=== PATIENT | male | born 1960 | race Caucasian/White ===

== ENCOUNTER → 2023-12-07 | Outpatient (BNVA) | payer MEDICARE, MEDICAID, SELFPAY | END | disposition home or self-care (01) | PROVIDERS: PCP Nurse Practitioner Family; Referring Provider Nurse Practitioner Family; Visit Provider Urology | DX: Z76.89 Persons encountering health services in other specified circumstances (principal) | CPT/HCPCS: 99212; G0463 ==

== ENCOUNTER → 2024-05-23 | Outpatient (CLI) | payer MEDICARE, MEDICAID, SELFPAY ==
[2024-05-23 09:19] LABS: Prostate Specific Antigen 3.01 ng/mL (0-4.00)
== END | disposition home or self-care (01) ==
PROVIDERS: PCP Urology; Referring Provider Urology; Visit Provider Urology
DX: C61 Malignant neoplasm of prostate (principal)
CPT/HCPCS: 36415; 84153

== ENCOUNTER → 2024-05-27 | Outpatient (BNVA) | payer MEDICARE, MEDICAID, SELFPAY | END | disposition home or self-care (01) | PROVIDERS: PCP Nurse Practitioner Family; Referring Provider Nurse Practitioner Family; Visit Provider Urology | DX: N40.0 Benign prostatic hyperplasia without lower urinary tract symptoms (principal); C61 Malignant neoplasm of prostate; I10 Essential (primary) hypertension; I25.10 Atherosclerotic heart disease of native coronary artery without angina pectoris | CPT/HCPCS: 81003; 99212; G0463 ==

== ENCOUNTER → 2024-06-07 | Outpatient (CLI) | payer MEDICARE, MEDICAID, SELFPAY ==
[2024-06-07 12:02] LABS: Basophils % (Auto) 0 % (0-2.5); Eosinophils # (Auto) 0.2 Thou/mm3 (0.0-0.5); Eosinophils % (Auto) 4 % (0-10); Hematocrit 34.2 % (41.0-53.0); Immature Granulocytes % (Auto) 0 % (0-0); Immature Granulocytes Auto 0.01 Thou/mm3 (0.00-0.00); Lymphocytes # (Auto) 1.4 Thou/mm3 (1.0-4.8); Lymphocytes % (Auto) 32 % (10-50); Mean Corpuscular HGB Conc 32.2 g/dl (31.0-37.0); Mean Corpuscular Volume 84 fL (80-100); Monocytes # (Auto) 0.6 Thou/mm3 (0.0-0.8); Monocytes % (Auto) 12 % (0-12); Neutrophils # (Auto) 2.3 Thou/mm3 (1.8-7.7); Neutrophils % (Auto) 52 % (37-80); Nucleated Red Blood Cell % 0 /100 WBC (0); Platelet Count 173 Thou/mm3 (140-440); RDW Standard Deviation 47.5 fL (35.1-43.9); Red Blood Count 4.08 Miln/mm3 (4.50-5.90); White Blood Count 4.5 Thou/mm3 (3.8-10.6)
[2024-06-07 12:20] LABS: Partial Thromboplastin Time 28.3 Seconds (22.0-36.0); Prothrombin Time 10.9 Seconds (9.0-12.2)
[2024-06-07 12:33] LABS: Anion Gap 4 (7-16); BUN/Creatinine Ratio 22 Ratio (12-20); Blood Urea Nitrogen 20 mg/dL (9-23); Calcium 8.7 mg/dL (8.3-10.6); Carbon Dioxide 27.8 mMol/L (20.0-31.0); Chloride 105 mMol/L (98-107); Creatinine (Component) 0.9 mg/dL (0.6-1.3); Glucose 127 mg/dL (74-106); Osmolality,Calculated 278 (275-295); Potassium 4.1 mMol/L (3.4-5.1); Sodium 137 mMol/L (136-145); eGFR > 60 See Note
== END | disposition home or self-care (01) ==
LOC: COPL 11:36
PROVIDERS: PCP Nurse Practitioner Family; Referring Provider Internal Medicine; Visit Provider Internal Medicine
DX: I25.10 Atherosclerotic heart disease of native coronary artery without angina pectoris (principal); I48.91 Unspecified atrial fibrillation
CPT/HCPCS: 36415; 80048; 85025; 85610; 85730

== ENCOUNTER → 2024-11-18 | Outpatient (CLI) | payer MEDICARE, MEDICAID, SELFPAY ==
[2024-11-18 10:52] LABS: Prostate Specific Antigen 4.19 ng/mL (0-4.00)
== END | disposition home or self-care (01) ==
LOC: COPL 08:49
PROVIDERS: PCP Nurse Practitioner Family; Referring Provider Urology; Visit Provider Urology
DX: C61 Malignant neoplasm of prostate (principal)
CPT/HCPCS: 36415; 84153

== ENCOUNTER → 2024-11-25 | Outpatient (BNVA) | payer MEDICARE, MEDICAID, SELFPAY | END | disposition home or self-care (01) | PROVIDERS: PCP Nurse Practitioner Family; Referring Provider Nurse Practitioner Family; Visit Provider Urology | DX: N40.0 Benign prostatic hyperplasia without lower urinary tract symptoms (principal); R97.20 Elevated prostate specific antigen [PSA]; C61 Malignant neoplasm of prostate; I10 Essential (primary) hypertension; I25.10 Atherosclerotic heart disease of native coronary artery without angina pectoris; E66.9 Obesity, unspecified; Z68.31 Body mass index [BMI] 31.0-31.9, adult | CPT/HCPCS: 81003; 99212; G0463 ==

== ENCOUNTER → 2024-12-12 | Outpatient (CLI) | payer MEDICARE, MEDICAID, SELFPAY ==
[2024-12-12 09:10] LABS: Basophils # (Auto) 0.0 Thou/mm3 (0.0-0.2); Basophils % (Auto) 0 % (0-2.5); Eosinophils # (Auto) 0.1 Thou/mm3 (0.0-0.5); Eosinophils % (Auto) 3 % (0-10); Hematocrit 35.4 % (41.0-53.0); Hemoglobin 11.3 g/dL (13.5-16.0); Immature Granulocytes Auto 0.01 Thou/mm3 (0.00-0.00); Lymphocytes # (Auto) 1.1 Thou/mm3 (1.0-4.8); Lymphocytes % (Auto) 25 % (10-50); Mean Corpuscular HGB Conc 31.9 g/dl (31.0-37.0); Mean Corpuscular Hemoglobin 27.2 pg (25.0-35.0); Mean Corpuscular Volume 85 fL (80-100); Monocytes # (Auto) 0.6 Thou/mm3 (0.0-0.8); Monocytes % (Auto) 12 % (0-12); Neutrophils # (Auto) 2.7 Thou/mm3 (1.8-7.7); Neutrophils % (Auto) 60 % (37-80); Nucleated Red Blood Cell # 0.00 Thou/mm3 (0.00-0.00); Nucleated Red Blood Cell % 0 /100 WBC (0); Platelet Count 150 Thou/mm3 (140-440); RDW Standard Deviation 49.0 fL (35.1-43.9); Red Blood Count 4.15 Miln/mm3 (4.50-5.90); White Blood Count 4.6 Thou/mm3 (3.8-10.6)
[2024-12-12 09:13] LABS: INR 1.0 (0.9-1.3); Partial Thromboplastin Time 28.7 Seconds (22.0-36.0); Prothrombin Time 10.9 Seconds (9.0-12.2)
[2024-12-12 09:34] LABS: Anion Gap 6 (7-16); BUN/Creatinine Ratio 14 Ratio (12-20); Blood Urea Nitrogen 13 mg/dL (9-23); Calcium 8.7 mg/dL (8.3-10.6); Carbon Dioxide 26.2 mMol/L (20.0-31.0); Chloride 110 mMol/L (98-107); Creatinine (Component) 0.9 mg/dL (0.6-1.3); Glucose 102 mg/dL (74-106); Osmolality,Calculated 283 (275-295); Potassium 4.3 mMol/L (3.4-5.1); Sodium 142 mMol/L (136-145); eGFR > 60 See Note
== END | disposition home or self-care (01) ==
LOC: COPL 06:53
PROVIDERS: PCP Nurse Practitioner Family; Referring Provider Internal Medicine; Visit Provider Internal Medicine
DX: I25.10 Atherosclerotic heart disease of native coronary artery without angina pectoris (principal); I48.91 Unspecified atrial fibrillation
CPT/HCPCS: 36415; 80048; 85025; 85610; 85730

== ENCOUNTER → 2025-01-09 | Outpatient (CLI) | payer MEDICARE, MEDICAID, SELFPAY | END | disposition home or self-care (01) | LOC: SLDO 12:05 | PROVIDERS: Referring Provider Urology; Visit Provider Urology | DX: R31.0 Gross hematuria (principal); C61 Malignant neoplasm of prostate | CPT/HCPCS: 87077; 87086; 87186 ==

== ENCOUNTER 2025-01-11 14:55 | Emergency (ER) | payer MEDICARE, MEDICAID, SELFPAY ==
[2025-01-11] VITALS (7 sets, daily range): BP systolic 118–167; BP diastolic 73–93; PULSE 83–120; RESP 16–20; TEMP 37.2–39.1; O2SAT 96–100; BMI 29.5
--- NOTE | 2025-01-11 15:16 | XR_ITS ---
Examination: CT abdomen and pelvis without contrast. Coronal 3-D reconstructions. Sagittal 2-D reconstructions. Date and time of exam: January 11, 2025, 1612 hours INDICATIONS: Right testicular pain and painful urination today. CTDI: vol (mGy): 9.28. DLP: (mGycm): 590. Technique: Axial images of the abdomen have been obtained, 3 mm slit thickness Intra ous contrast material has not been administered. Low dose protocols were performed. One or more of the following dose reduction techniques were used; automated exposure control, adjustment of the mA and/or KV according to patient size, use of iterative reconstruction technique. Findings: No focal liver or splenic lesions No gallstones No pancreatic or adrenal mass 4.3 cm left renal cyst No renal or ureteral calculi, no hydronephrosis Aorta normal size Normal appendix No bowel obstruction No diverticulitis Irregular urinary bladder wall thickening up to 14 mm No bladder calculi Suspicious for right varicocele IMPRESSION: No renal or ureteral calculi, no hydronephrosis. Normal appendix Irregular urinary bladder wall thickening up to 14 mm, differential would include cystitis, early bladder cancer not excluded Suspicious for right varicocele, recommend testicular sonography follow-up
--- NOTE | 2025-01-11 15:18 | PD.EDRME ---
Rapid Medical Screening Exam [facility] Arrival date/time: 01/11/25 14:55 84-year-old male presents to the emergency dept today for complaints of penile pain and dysuria Chief Complaint: Urogenital-Male Vital signs: Vital Signs Temperature 99.5 F 01/11/25 15:10 Pulse Rate 96 01/11/25 15:10 Respiratory Rate 18 01/11/25 15:10 Blood Pressure 159/81 H 01/11/25 15:10 Pulse Oximetry (%) 100 01/11/25 15:10 Oxygen Delivery Method Room Air 01/11/25 15:10
[2025-01-11 15:52] LABS: Collection Type, Urine Clean Catch
[2025-01-11 15:58] LABS: Basophils # (Auto) 0.0 Thou/mm3 (0.0-0.2); Basophils % (Auto) 0 % (0-2.5); Eosinophils # (Auto) 0.2 Thou/mm3 (0.0-0.5); Eosinophils % (Auto) 1 % (0-10); Hematocrit 34.6 % (41.0-53.0); Hemoglobin 11.2 g/dL (13.5-16.0); Immature Granulocytes Auto 0.05 Thou/mm3 (0.00-0.00); Lymphocytes # (Auto) 1.0 Thou/mm3 (1.0-4.8); Lymphocytes % (Auto) 9 % (10-50); Mean Corpuscular HGB Conc 32.4 g/dl (31.0-37.0); Mean Corpuscular Hemoglobin 27.3 pg (25.0-35.0); Mean Corpuscular Volume 84 fL (80-100); Monocytes # (Auto) 1.3 Thou/mm3 (0.0-0.8); Monocytes % (Auto) 12 % (0-12); Neutrophils # (Auto) 8.5 Thou/mm3 (1.8-7.7); Neutrophils % (Auto) 77 % (37-80); Nucleated Red Blood Cell # 0.00 Thou/mm3 (0.00-0.00); Nucleated Red Blood Cell % 0 /100 WBC (0); Platelet Count 138 Thou/mm3 (140-440); RDW Standard Deviation 50.4 fL (35.1-43.9); Red Blood Count 4.11 Miln/mm3 (4.50-5.90); White Blood Count 10.9 Thou/mm3 (3.8-10.6)
[2025-01-11 16:11] LABS: Bilirubin,Urine Negative (Negative); Blood,Urine 3+ (Negative); Color,Urine Yellow (Lt Yel-Yel); Glucose, Urine 4+ (Negative); Ketones,Urine Negative (Negative); Leukocyte Esterase,Urine Positive (Negative); Nitrite,Urine Positive (Negative); PH,Urine 6.0 (5.0-7.0); Protein,Urine 2+ (Neg - Trace); RBC,Urine 235 /hpf (0-3); Specific Gravity,Urine 1.036 (1.001-1.035); Squamous Epithelial Cell,Urine 1 /hpf (0-5); Urobilinogen,Urine 2.0 mg/dL (0.0-1.0); WBC,Urine 1270 /hpf (0-5)
[2025-01-11 16:19] LABS: Alanine Aminotransferase 30 U/L (10-49); Albumin, Serum 4.2 gm/dL (3.4-4.8); Albumin/Globulin Ratio 1.6 (1.2-2.2); Alkaline Phosphatase 104 U/L (46-116); Anion Gap 8 (7-16); Aspartate Amino Transferase 29 U/L (0-34); BUN/Creatinine Ratio 14 Ratio (12-20); Bilirubin,Total 0.5 mg/dL (0.3-1.2); Blood Urea Nitrogen 14 mg/dL (9-23); Calcium 8.5 mg/dL (8.3-10.6); Calcium (Corrected) 8.5 mg/dL (8.5-10.1); Carbon Dioxide 24.9 mMol/L (20.0-31.0); Chloride 105 mMol/L (98-107); Creatinine (Component) 1.0 mg/dL (0.6-1.3); Estimated Creatinine Clearance 85.3 mL/min (>60); Globulin 2.6 gm/dL (2.3-3.5); Glucose 116 mg/dL (74-106); Lipase 57 U/L (12-53); Osmolality,Calculated 277 (275-295); Potassium 3.8 mMol/L (3.4-5.1); Sodium 138 mMol/L (136-145); Total Protein 6.8 gm/dL (5.7-8.2); eGFR > 60 See Note
[2025-01-11 16:31] LABS: Clarity,Urine Turbid (Clear/Hazy); Culture Indicated,Urine Yes
--- NOTE | 2025-01-11 17:02 | XR_ITS ---
Examination: Testicular sonography complete TECHNIQUE: Larson scale sonographic images testes, assessment arterial inflow and venous outflow Doppler spectrum analysis color flow analysis Date and time: January 11, 2025, 1805 hours INDICATIONS: Right testicular swelling and pain beginning 2 days ago FINDINGS: Right testis 4.5 cm epididymis 2.2 cm 3 mm epididymal cyst Arterial flow the testicle. No testicular mass Small varicocele Moderate hydrocele Left testis 4.5 cm epididymis 1.9 cm Arterial flow of the testicle. 2 mm epididymal cyst No testicular mass Small varicocele Moderate hydrocele IMPRESSION: No testicular torsion or testicular Mass. Small bilateral hydroceles
--- NOTE | 2025-01-11 18:07 | PD.EDMALE ---
ED Male Genitalurinary RME/HPI General Chief complaint: Urogenital-Male Stated complaint: PENIS PAIN Time Seen by Provider: 01/11/25 16:25 Arrival date/time: 01/11/25 14:55 RME / HPI RME / HPI Narrative: 64-year-old male presents to the emergency dept today for complaints of penile pain and dysuria. Patient's been having symptoms for the last few days, severity of symptoms moderate. Patient is worried because today patient woke up with pain and discomfort to the right testicle. Denies any vomiting denies any fever denies any abdominal pain. Related Data Home Medications ?Medication ?Instructions ?Recorded ?Confirmed atorvastatin 80 mg tablet 80 mg PO QDAY 04/12/19 11/25/24 baclofen 20 mg tablet 20 mg PO QDAY 04/12/19 11/25/24 lisinopril 10 mg tablet 10 mg PO QDAY 04/12/19 11/25/24 cilostazol 50 mg tablet 50 mg PO BID 10/23/23 11/25/24 gabapentin 100 mg capsule 100 mg PO BID 05/27/24 11/25/24 aspirin 81 mg tablet 81 mg PO QDAY 11/25/24 11/25/24 Previous Rx's ?Medication ?Instructions ?Recorded cefuroxime axetil 500 mg tablet 500 mg PO BID #14 tabs 01/11/25 ibuprofen 800 mg tablet 800 mg PO Q8H PRN pain #30 tabs 01/11/25 Allergies Allergy/AdvReac Type Severity Reaction Status Date / Time No Known Allergies Allergy Verified 01/11/25 14:58 Review of Systems Review of Systems Narrative Review of Systems: Review of system reviewed and within normal limits except mentioned in HPI ED Exam Narrative Physical exam: VITAL SIGNS: Reviewed. GENERAL APPEARANCE: Alert and interactive, follows commands, no acute distress, HEAD AND FACE: Non-traumatic. ENT: PERRL, pink conjunctivitis, eyelid no trauma, Mucous membrane moist. NECK: Supple, nontender, no nuchal rigidity. CHEST: No tenderness, no crepitus, no paradoxical movement, no retractions. LUNGS: Clear, well ventilated, symmetric, no rales, no wheezing, no ronchi, no stridor, good breath sounds bilaterally. HEART: Regular rate, regular rhythm, no murmur, no gallops. ABDOMEN: Soft, positive bowel sounds, nondistended, no guarding, nontender, no rebound, no masses, RECTAL: Deferred. GENITAL: Redness and swelling right testicle, no masses palpated NEUROLOGICAL: Gross motor function intact sensory function intact, Appropriate for age. MUSCULOSKELETAL: low back nontender, full range of motion. EXTREMITIES: Nontender, full range of motion. SKIN: Color pink, dry, no rash, no lacerations, no abrasions, no contusions. LYMPHATICS: Deferred. Course Quality Measures none Orders Category Date Time Status CT abdomen pelvis wo con Stat Exams 01/11/25 15:16 Completed US testicular Stat Exams 01/11/25 17:02 Completed CBC Stat Lab 01/11/25 15:43 Completed Comprehensive Metabolic Panel Stat Lab 01/11/25 15:43 Completed Lipase Stat Lab 01/11/25 15:43 Completed UA, C/S IF [Urinalysis, C/S if Indicated] Stat Lab 01/11/25 15:30 Completed Urine Culture Stat Lab 01/11/25 15:30 Received Acetaminophen Tab [Tylenol ES Tab] Med 01/11/25 18:06 Discontinued 1,000 mg PO X1 ONE Sodium Chloride 0.9% 1000 ml [Ns] 1,000 ml Med 01/11/25 18:07 Discontinued IV 999 mls/hr cefTRIAXone [Rocephin] 2 gm Med 01/11/25 18:07 Discontinued SODIUM CHLORIDE 0.9% (Popper) [Ns 0.9% (P)] 50 ml IV X1 Vital Signs Vital signs: Vital Signs Temperature 99.5 F 01/11/25 15:10 Pulse Rate 96 01/11/25 15:10 Respiratory Rate 18 01/11/25 15:10 Blood Pressure 159/81 H 01/11/25 15:10 Pulse Oximetry (%) 100 01/11/25 15:10 Oxygen Delivery Method Room Air 01/11/25 15:10 Urogenital - Male MDM Narrative MDM Narrative:: 64-year-old male presents to the emergency dept today for complaints of penile pain and dysuria. Patient's been having symptoms for the last few days, severity of symptoms moderate. Patient is worried because today patient woke up with pain and discomfort to the right testicle. Denies any vomiting denies any fever denies any abdominal pain. Patient CBC showed mild leukocytosis of 10.9 mild anemia 11.2 CMP unremarkable creatinine is normal urinalysis significant for UTI CT scan of the abdomen and pelvis No renal or ureteral calculi, no hydronephrosis. Normal appendix Irregular urinary bladder wall thickening up to 14 mm, differential would include cystitis, early bladder cancer not excluded Suspicious for right varicocele, recommend testicular sonography follow-up Ultrasound of the testicle showed No testicular torsion or testicular Mass. Small bilateral hydroceles Patient received IV fluids for hydration, IV ceftriaxone 2 g. Was also given Tylenol. Patient is tolerating p.o. fluids, no vomiting noted in the ED. Patient data External records reviewed:: None Clinical information provided by:: patient Social determinants that could affect healthcare access:: none Patient has the following chronic illnesses:: Stable How is presenting disease/condition affected by chronic disease/condition?: uneffected by Evaluation data The following diagnostics were reviewed and interpreted by me:: lab results and radiology exam(s) Lab and/or radiology exams considered but not ordered:: None Interpretation Summary: See results MDM Medications / Prescriptions Medications or Prescriptions considered but not ordered:: None Medication administrations:: Medication Administration History Discontinued Medications Acetaminophen (Acetaminophen 500 Mg Tablet) 1,000 mg PO X1 ONE Stop: 01/11/25 18:07 Last Admin: 01/11/25 18:25 Dose: 1,000 mg Documented By: ER Sodium Chloride (Ns) 1,000 mls @ 999 mls/hr IV .Q1H1M ONE Stop: 01/11/25 19:07 Last Infusion: 01/11/25 19:32 Dose: Infused Documented By: Admin: 01/11/25 18:31 Dose: 999 mls/hr Documented By: ER Ceftriaxone Sodium 2 gm/ (Sodium Chloride) 50 mls @ 100 mls/hr IV X1 ONE Stop: 01/11/25 18:36 Last Infusion: 01/11/25 19:01 Dose: Infused Documented By: Admin: 01/11/25 18:31 Dose: 100 mls/hr Documented By: ER Ceftriaxone IV, IV fluids for hydration Tylenol Consultations Consultation(s) initiated? (list below): No Diagnosis Urogenital Male Differential Diagnosis: urinary tract infection, urethritis and epididymitis Most likely diagnosis given after review of the tests above:: UTI Admission Indicated Admission indicated?: not indicated Admission Request Was there a request for admission?: No Disposition Plan Disposition Plan: Discharge Discharge Attestation Discharge Attestation: The patient and all family members were given an opportunity to ask questions and understood the discharge instructions. Discharge instructions specifically effects, indications for sooner follow up or return to the emergency department, and the expected course of current diagnosis. Patient condition: Stable Discharge Plan Plan Patient Disposition: HOME (Self Care) Discharge Disposition comment: stable Prescriptions/Referrals Prescriptions/Med Rec: New cefuroxime axetil 500 mg tablet 500 mg PO BID Qty: 14 0RF ibuprofen 800 mg tablet 800 mg PO Q8H PRN (Reason: pain) Qty: 30 0RF No Action lisinopril 10 mg tablet 10 mg PO QDAY atorvastatin 80 mg tablet 80 mg PO QDAY baclofen 20 mg tablet 20 mg PO QDAY cilostazol 50 mg tablet 50 mg PO BID tobramycin sulfate 40 mg/mL solution 160 mg IM .x1 now Qty: 4 0RF gabapentin 100 mg capsule 100 mg PO BID aspirin 81 mg tablet 81 mg PO QDAY Referrals: Lisa Vazquez [employer] [Primary Care Provider] - In 1 week Problem List Clinical Impression: UTI (urinary tract infection) Patient/Caregiver Discharge Instructions Discharge Activity: activity as tolerated Education Materials: Understanding Urinary Tract ... Additional Instructions: Thank you for the opportunity for serving you today. You are stable for discharged . You are advised to: Follow-up with your PCP in 1 to 2 days Return to ED for worsening of symptoms Increase oral fluids Take medication as prescribed Print Language: Japanese Stand Alone Forms: Karissa Award Info., Patient Portal Info Letter COLLINS/EDWARD Supervising Physician MELISSA Supervising Physician: MD Annalisa
[2025-01-11] MEDS: ACETAMINOPHEN 500 MG TABLET 1000 MG PO (18:25)
[2025-01-11] MEDS: SODIUM CHLORIDE 0.9% 1000 ML 1,000 ML 999 ML IV (18:31)
[2025-01-11] MEDS: cefTRIAXone 2 GM in SODIUM CHLORIDE 0.9% (Popper) 50 ML IV (18:31)
== END 2025-01-11 21:11 | disposition home or self-care (01) ==
PROVIDERS: Nurse Practitioner Primary Care; Emergency Provider Family Medicine; PCP Nurse Practitioner Family
DX: N39.0 Urinary tract infection, site not specified (principal); N43.3 Hydrocele, unspecified; N32.89 Other specified disorders of bladder; D64.9 Anemia, unspecified
CPT/HCPCS: 36415; 74176; 76870; 80053; 81001; 83690; 85025; 87077; 87086; 87186; 96361; 96365; 99283; J0696; J7030; J7050; A9270

== ENCOUNTER → 2025-03-26 | Outpatient (CLI) | payer MEDICARE, MEDICAID, SELFPAY ==
[2025-04-08 22:05] LABS: PSA, Free 0.72 ng/mL; PSA, Total 5.0 ng/mL (< OR = 4.0)
[2025-04-09 06:20] LABS: PSA, % Free 14 % (calc) (>25)
== END | disposition home or self-care (01) ==
LOC: COPL 08:43
PROVIDERS: PCP Nurse Practitioner Family; Referring Provider Urology; Visit Provider Urology
DX: R97.20 Elevated prostate specific antigen [PSA] (principal)
CPT/HCPCS: 36415; 84153; 84154

== ENCOUNTER → 2025-03-31 | Outpatient (BNVA) | payer MEDICARE, MEDICAID, SELFPAY | END | disposition home or self-care (01) | PROVIDERS: PCP Nurse Practitioner Family; Referring Provider Nurse Practitioner Family; Visit Provider Physician Assistant | DX: N40.1 Benign prostatic hyperplasia with lower urinary tract symptoms (principal); C61 Malignant neoplasm of prostate; I10 Essential (primary) hypertension | CPT/HCPCS: 99212; 99213; Q3014; G0463 ==